=== PATIENT | male | born 1960 | race Caucasian/White ===

== ENCOUNTER → 2023-11-03 | Emergency (ER) | payer SELFPAY ==
[~2023-11-03] MED LIST: DIAZEPAM 10 MG/2 ML INJ SYRINGE ONE; DIPHENHYDRAMINE 50 MG/ML VIAL ONE; HALOPERIDOL LACT 5 MG/ML INJ ONE; NA CHLORIDE 0.9% 1,000 ML ONE
--- OUTSIDE RECORDS SUMMARY | 2023-11-03 17:14 | XMS REPORT | Continuity of Care Document ---
Author Name Unknown Address [address] [facility] [address] [place] [address] [facility] Address [address] [facility] [address] [place] [address] Care Team Providers Care Iron Cutter Name Role Phone Augustin Roberts Attending Clinician LIZZY Roach Attending Clinician Unavailable Physician, No Primary or Family Admitting Clinic musa Unavailable Payers Payer Name Policy Type Policy Number Effective Date Expirati on Date Source Allergies, Adverse Reactions, Alerts Allergy Name Allergy Type Status Severity Reaction(s) Onset Date Inactive Date Treating Clinician Comments Source No Known Allergie s DA Active U 2022-09 00:00: 00 [facility] Encounters Start Date/Time End Date/Time Encounter Type Admission Type Attending Clinicians Care Facility Care Department Encounter ID Source 2023-10-23 12:49:41 Outpatient LE LUJAN [id number] [facility] 2023-09-24 18:33:00 2023-09-24 22:52:00 Emergency EM Augustin Roberts [facility] [id number] [facility] 2023-09-11 11:43:33 2023-09-11 23:59:00 [facility]patient [facility] [id number] [facility] Results Test Description Test Time Test Comments Results Result Co mments Source BASIC METABOLIC [id number] 21:14:00* Test Item Value Reference Range Interpretation Comme nts SODIUM (test code = NA) 139 mmol/L 136-145 N POTASSIUM (test code = K) 4.2 mmol/L 3.5-5.1 N CHLORIDE (test code = CL) 107.0 mmol/L 98-107 N CARBON DIOXIDE (test code = CO2) 27.0 mmol/L 21-32 N ANION GAP (test code = GAP) 9.2 10-20 L GLUCOSE (test code = GLU) 289 mg/dL 74-106 H BLOOD UREA NITROGEN (test code = BUN) 13 mg/dL 7-18 N GLOMERULAR FILTRATION RATE (test code = GFR) > 60 mL/min >=60 The Glomerular Filtration Rate is a calculated parameterbased on serum Creatinine, patient age and sex. GFR valuesless than 60 mL/min/1.73 square meters are indicative ofChronic Kidney Disease. Values less than 15 mL/min/1.73square meters indicate Kidney failure. The calculation forGFR is based on the CKD-EPI (202) calculation. This formulais race indifferent and is the recommended formula for GFRby the National Kidney Foundation for Adults.The GFR will not calculate if the sex is unknown or if thepatient's age is <18 years. CREATININE (test code = CREAT) 0.80 mg/dL 0.7-1.3 N BUN/CREATININE RATIO (test code = BUN/CREA) 15.5 10-20 N CALCIUM (test code = CA) 7.9 mg/dL 8.5-10.1 L HEPATIC FUNCTION [id number] 21:14:00* Test Item Value Reference Range Interpretation Comme nts TOTAL PROTEIN (test code = PROT) 5.8 gram/dL 6.4-8.2 L ALBUMIN (test code = ALB) 3.0 g/dL 3.4-5.0 L GLOBULIN (test code = GLOB) 2.8 gram/dL 2.7-4.2 N ALBUMIN/GLOBULIN RATIO (test code = A/G) 1.1 0.75-1.50 N BILIRUBIN TOTAL (test code = BILT) 0.20 mg/dL 0.0-1.0 N BILIRUBIN DIRECT (test code = BILD) < 0.10 mg/dL 0.0-0.20 N SGOT/AST (test code = AST) 18 IUnit/L 15-37 N SGPT/ALT (test code = ALT) 29 IUnit/L 12-78 N ALKALINE PHOSPHATASE TOTAL (test code = ALKP) 76 IUnit/L 45-117 N Note change in reference range due to change in reagent. [id number] 21:14:00* Test Item Value Reference Range Interpretation Comme nts LIPASE (test code = LIP) 37 U/L 12-57 N URINALYSIS [id number] 21:02:00* Test Item Value Reference Range Interpretation Comme nts UA COLOR (test code = COLU) Light-Yellow YELLOW UA APPEARANCE (test code = APPU) CLEAR CLEAR IS THE SAMPLE FROM ER OR L&D?Y IF THE ANSWER IS NO,PLEASE DOCUMENT TWO RN SIGNATURES HERE- by [id number] 09/24/232101 UA GLUCOSE DIPSTICK (test code = DGLUU) >1000 (4+) mg/dL NEGATIVE UA BILIRUBIN DIPSTICK (test code = BILU) NEGATIVE mg/dL NEGATIVE UA KETONE DIPSTICK (test code = KETU) NEGATIVE mg/dL NEGATIVE UA SPECIFIC GRAVITY (test code = SGU) 1.035 1.001-1.035 UA BLOOD DIPSTICK (test code = SOFI) Negative mg/dL NEGATIVE UA PH DIPSTICK (test code = ALONSO) 5.5 5.0-8.0 UA PROTEIN DIPSTICK (test code = PROU) NEGATIVE mg/dL NEGATIVE UA UROBILINIOGEN DIPSTICK (test code = URO) Normal mg/dL NEGATIVE UA NITRITE DIPSTICK (test code = ROGERS) NEGATIVE NEGATIVE UA LEUKOCYTE ESTERASE W REFLEX (test code = LEUUR) NEGATIVE Kezia/uL NEGATIVE UA WBC (test code = WBCU) 0-5 per HPF 0-5 UA RBC (test code = RBCU) 0-3 #/HPF 0-5 UA EPITHELIAL CELLS (test code = EPIU) Few (2-5/hpf) per HPF FEW UA BACTERIA (test code = BACU) FEW #/HPF NONE UA MUCUS (test code = MUCU) FEW #/LPF FEW Urine Source? Clean CatchCBC W/O [id number] 20:51:00* Test Item Value Reference Range Interpretation Comme nts WHITE BLOOD CELL (test code = WBC) 8.8 K/mm3 4.5-12.5 N RED BLOOD CELL (test code = RBC) 4.20 mill/mm3 4.0-5.8 N HEMOGLOBIN (test code = HGB) 12.2 gram/dL 13.0-17.5 L HEMATOCRIT (test code = HCT) 37.9 % 42.0-52.0 L MEAN CELL VOLUME (test code = MCV) 90.2 fL 80-98 N MEAN CELL HGB (test code = MCH) 29.0 picogram 27.0-33.0 N MEAN CELL HGB CONCETRATION (test code = MCHC) 32.2 gram/dL 33.0-36.0 L RED CELL DISTRIBUTION WIDTH (test code = RDW) 14.6 % 11.6-16.2 N PLATELET COUNT (test code = PLT) 155 K/mm3 150-450 N MEAN PLATELET VOLUME (test c ode = MPV) 10.9 fL 6.7-11.0 N [id number] 19:52:00* Test Item Value Reference Range Interpretation Comme nts GLUBED (test code = GLUBED) 290 mg/dL 74-106 H Performed by cer tified partition assembly machine [facility]~ Notes Date/Time Note Provider Source 2023-09-24 20:08:00 [id number]:08:00 [facility] ([facility] PROVID[facility] REPORTREPORT#:[id number] REPORT STATUS: SignedDATE:09/24/23 TIME: 2007 PATIENT: ADI VILLAVICENCIO UNIT #: [id number]#: [id number] ROOM/BED:AGE: 63 SEX: M PCP PHYS: No Primary or Family PhysicianSERVICE AUTHOR: Augustin Roberts MD * ALL edits or amendments must be made on the electronic/computer document * HPI-General Illness Free Text HPI NotesFree Text HPI NotesCase of a 63-year-old male with reported past medical history of diabetes, hypertension, neuropathy, alcoholism who comes to the ER with complaint of nausea vomiting. Patient reports that he is currently in a rehab facility 40s alcoholism. Says that he forgot to bring his diabetes medication (metformin) andhas been without it for the last four days. Says that today developed nausea vomiting described as ingested food (no blood, no bile). Cannot recall inciting event, does not identify improving or worsening factors. Denies other associatedsymptoms like increased thirst, increased urinary frequency, diarrhea, fever, abdominal pain, skin color changes, passing out. GeneralConfirmed Patient YesInitial Greet Date/Time 09/24/231838 PresentationChief Complaint VomitingHx Obtained From Patient, EMS Review of Systems ROS StatementsAll systems rev neg except as marked. Free Text ROS NotesFree Text ROS NotesConstitutional Denies: Chills, Fatigue, Fever, Malaise, Weakness - generalized. Eyes Denies: Blurred bilat, Discharge bilat, Redness bilat, Swelling bilat. Ears/Nose/Throat Denies: Earache bilat, Hearing loss bilat, Mouth pain, Nasal congestion, Nose bleeding, Sinus problem, Sore throat. Respiratory Denies: Cough, non-productive, Dyspnea on exertion, Pleuritic pain, Shortness of breath. Cardiovascular Denies: Chest pain, Edema, Orthopnea, Palpitations, Syncope. GI Denies: Abdominal pain, Diarrhea. Male Denies: Dysuria, Flank pain, Penile discharge, Scrotal swelling, Testicular pain, Urinary frequency, Urinary urgency, Urination decreased, Urination increased. Musculoskeletal Denies: Back pain, Extremity pain, Extremity swelling, Joint pain, Joint swelling. Hematologic Denies: Adenopathy. Skin Denies: Diaphoresis, Erythema, Itching, Jaundice, Rash, Swelling. Neurologic Denies: Change LOC, Confusion, Dizziness, Focal weakness, Headache, Problem walking, Slurred speech, Syncope. Past Medical History - AdultStated Complaint HYPERGLYCEMIAAllergiesCoded Allergies:No Known Allergies (09/24/23) Smoking status for patients 13 years old or older: Unknown,if ever smoked Physical Exam Vital SignsVital SignsFirst Documented: Result Date Time Pulse Ox 98 09/24 1835 B/P 152/86 09/24 1835 B/P Mean 108 09/24 1835 O2 Delivery Room air 09/24 1835 Temp 36.7 09/24 1835 Pulse 104 09/24 1835 Resp 18 09/24 1835 Last Documented: Result Date Time Pulse Ox 98 09/24 2252 B/P 138/72 09/24 2252 B/P Mean 94 09/24 2252 O2 Delivery Room air 09/24 2252 Temp 36.7 09/24 2252 Pulse 103 09/24 2252 Resp 17 09/24 2252 Review of Vital Signs Reviewed Free Text PE NotesFree Text PE NotesGeneral/Const Awake, Alert, No acute distress, Well appearing, Cooperative, Not toxic appearingMS Head NormocephalicEyes PERRL, EOMIEars/Nose/Throat Airway patent, Mucous membranes moist, Pharynx NLMS Neck Supple, No meningismus, Full range of motion, No adenopathyResp/Chest Breath sounds NL, Breath sounds = bilat, No respiratory distressCardiovascular Heart rate NL, Regular rhythm, Heart sounds NL, Cap refill not delayed, Peripheral circulation NLAbdomen/GI Soft, Non-tender, BS normoactive, No distentionMS Back Inspection NLLymphatic No gross adenopathyMS Upper Extrem Inspection NL, Full range of motion, No swellingMS Lower Extrem Inspection NL, Full range of motion, No swellingSkin Color NL, No rash, Warm, DryNeurologic Oriented X3, Speech NL, No motor deficits, No sensory deficitsPsychiatric Affect NL, Mood NL Interpretation Diagnostics Lab Results InterpretationResultsLaboratory Tests 09/24/232012:[Embedded Image Not Available] 09/24/232011:[Embedded Image Not Available]Laboratory Tests: 09/24 Chemistry Sodium (136 - 145 mmol/L) 139 Potassium (3.5 - 5.1 mmol/L) 4.2 Chloride (98 - 107 mmol/L) 107.0 Carbon Dioxide (21 - 32 mmol/L) 27.0 Anion Gap (10 - 20) 9.2 L BUN (7 - 18 mg/dL) 13 Creatinine (0.7 - 1.3 mg/dL) 0.80 Glomerular Filtr Rate (>=60 mL/min) > 60 BUN/Creatinine Ratio (10 - 20) 15.5 Glucose (74 - 106 mg/dL) 289 H POC Glucose (74 - 106 mg/dL) 290 H Calcium (8.5 - 10.1 mg/dL) 7.9 L Total Bilirubin (0.0 - 1.0 mg/dL) 0.20 Direct Bilirubin (0.0 - 0.20 mg/dL) < 0.10 AST (15 - 37 IUnit/L) 18 ALT (12 - 78 IUnit/L) 29 Total Alk Phosphatase (45 - 117 IUnit/L) 76 Troponin I (0 - 54 pg/mL) 5.380 Total Protein (6.4 - 8.2 gram/dL) 5.8 L Albumin (3.4 - 5.0 g/dL) 3.0 L Globulin (2.7 - 4.2 gram/dL) 2.8 Albumin/Globulin Ratio (0.75 - 1.50) 1.1 Lipase (12 - 57 U/L) 37 Hematology WBC (4.5 - 12.5 K/mm3) 8.8 RBC (4.0 - 5.8 mill/mm3) 4.20 Hgb (13.0 - 17.5 gram/dL) 12.2 L Hct (42.0 - 52.0 %) 37.9 L MCV (80 - 98 fL) 90.2 MCH (27.0 - 33.0 picogram) 29.0 MCHC (33.0 - 36.0 gram/dL) 32.2 L RDW (11.6 - 16.2 %) 14.6 Plt Count (150 - 450 K/mm3) 155 MPV (6.7 - 11.0 fL) 10.9 Urines Urine Color (YELLOW) Light-Yellow Urine Appearance (CLEAR) CLEAR Urine pH (5.0 - 8.0) 5.5 Ur Specific [place] (1.001 - 1.035) 1.035 Urine Protein (NEGATIVE mg/dL) NEGATIVE Urine Glucose (UA) (NEGATIVE mg/dL) >1000 (4+) Urine Ketones (NEGATIVE mg/dL) NEGATIVE Urine Blood (NEGATIVE mg/dL) Negative Urine Nitrite (NEGATIVE) NEGATIVE Urine Bilirubin (NEGATIVE mg/dL) NEGATIVE Urine Urobilinogen (NEGATIVE mg/dL) Normal Ur Leukocyte Esterase (NEGATIVE Kezia/uL) NEGATIVE Urine RBC (0 - 5 #/HPF) 0-3 Urine WBC (0 - 5 per HPF) 0-5 Ur Epithelial Cells (FEW per HPF) Few (2-5/hpf) Urine Bacteria (NONE #/HPF) FEW Urine Mucus (FEW #/LPF) FEW ECG #1 InterpretationText/Dict NoteSinus tachycardia at 106 beats per minute, no axis deviation, no ST elevation, no acute ischemic changes, normal segments.Date 09/24/23Time 1941Interpreted by and reviewed by me Re-Evaluation MDM Free Text MDM NotesFree Text MDM NotesPatient with complaint of nausea vomiting. Physical exam without any concerning findings. Will request laboratory analysis and imaging to assess for possible pathologies and complications like hyperglycemia, electrolyte derangements, renal failure, DKA. Patient started on IV fluids while awaiting results. Re-Evaluation/Progress #1Text/Dict NotePatient resting comfortably. There has been no additional vomiting. Patient is sleeping. Pending laboratory analysis.Time of Re-Eval -Eval Status Improved Re-Evaluation/Progress #2Text/Dict NotePatient without complaint. Pending laboratory analysis.Time of Eval -Eval Status Improved Re-Evaluation/Progress #3Text/Dict NotePatient stable, no distress, not toxic. Labs show adequate hemoglobin, normal white blood cell count, normal renal function without major electrolyte derangements. There is hyperglycemia without signs of complications like DKA. Noneed for acute correction. Urine analysis is not consistent with a UTI. Case of uncomplicated uncontrolled diabetes. There are no signs, symptoms, or any finding that would suggest severe pathology or complications that warrants further ER or inpatient management. Patient has been explained about differential diagnosis, lab analysis, course of disease, possible complications,and treatment options in its entirety. Pt has been oriented in detail about signs and symptomst that would prompt immediate return to ER and instructed to follow up with primary care physician.Time of Eval -Eval Status Improved ED CourseMedication(s) OrderedMedication(s) Ordered:Electrolytic, Caloric, And Ann Marie Sig/Lacey Start time Last Medication Dose Route Stop Time Status Admin Sodium Chloride 1,000 ML X1ED STA 09/24 1841 DC 09/24 IV 09/24 Patient Discharge Departure Vital Signs/ConditionVital SignsFirst Documented: Result Date Time Pulse Ox 98 09/24 1835 B/P 152/86 09/24 1835 B/P Mean 108 09/24 1835 O2 Delivery Room air 09/24 1835 Temp 36.7 09/24 1835 Pulse 104 09/24 1835 Resp 18 09/24 1835 Last Documented: Result Date Time Pulse Ox 98 09/24 2252 B/P 138/72 09/24 2252 B/P Mean 94 09/24 2252 O2 Delivery Room air 09/24 2252 Temp 36.7 09/24 2252 Pulse 103 09/24 2252 Resp 17 09/24 2252 All vital signs available at the time of this entry have been reviewed. Condition Stable, Improved Clinical ImpressionClinical ImpressionPrimary Impression: VomitingSecondary Impressions: Hyperglycemia Disposition DecisionDischarge )( Discharged to Home Yes )( Time 2127 )( Date 09/24/23 Discharge/Care PlanCounseled Regarding Diagnosis, Lab results, Need for follow-up, When to return to ED(Auto) PrescriptionsCurrent Visit ScriptsONDANSETRON ODT (ZOFRAN ODT) 4 MG PO Q6H PRN PRN NAUSEA/VOMITING ONDANSETRON ODT (ZOFRAN ODT) 4 MG PO Q6H PRN PRN NAUSEA/VOMITING #15 TABS Patient Instructions ED Diabetes with High Blood SugarDeparture FormsPCP LIST Discharge NoteI have spoken with the patient and/or caregivers. I have explained the patient'scondition, diagnoses and treatment plan based on the information available to meat this time. I have answered the patient's and/or caregiver's questions and addressed any concerns. The patient and/or caregivers have as good an understanding of the patient's diagnosis, condition and treatment plan as can beexpected at this point. The vital signs have been stable. The patient's condition is stable and appropriate for discharge from the emergency department. The patient will pursue further outpatient evaluation with the primary care physician or other designated or consulting physician as outlined in the discharge instructions. The patient and/or caregivers are agreeable to this planof care and follow-up instructions have been explained in detail. The patient and/or caregivers have received these instructions in written format and have expressed an understanding of the discharge instructions. The patient and/or caregivers are aware that any significant change in condition or worsening of symptoms should prompt an immediate return to this or the closest emergency department or a call to 911. at [id number] #:[id number] OF REPORTEmesummit pacific medical [facility] department [id number]:08:[id number] ilable for patient [id number]:12:31 [facility]
[2023-11-03 18:03] LABS: Absolute Lymphocytes (CBC) 1.4 K/uL (0.7-4.9); Hematocrit 40.3 % (39.6-49.0); Lymphocytes % 14.2 % (15.3-44.8); MPV 9.1 fL (7.6-11.3); Platelets 223 thou/uL (152-406); RBC Red Blood Cell Count 4.74 M/uL (4.33-5.43)
[2023-11-03 18:08] LABS: Protime INR 1.04
[2023-11-03 18:09] LABS: Barbiturates NEGATIVE (NEGATIVE); Benzodiazepines NEGATIVE (NEGATIVE); Cocaine POSITIVE (NEGATIVE); METHAMPHETAM POSITIVE (NEGATIVE); Methadone NEGATIVE (NEGATIVE); Opiates NEGATIVE (NEGATIVE); Phencyclidine POSITIVE (NEGATIVE); THC Cannibis POSITIVE (NEGATIVE)
[2023-11-03 18:27] LABS: ALT/SGPT 49 U/L (16-61); AST/SGOT 33 U/L (15-37); Albumin 3.7 g/dL (3.4-5.0); Alkaline Phosphatase 105 U/L (45-117); BUN Blood Urea Nitrogen 19 mg/dL (7-18); Bicarbonate 25 mEq/L (21-32); Bilirubin Direct 0.2 mg/dL (0-0.2); Bilirubin Indirect, Calculated 0.4 mg/dL (0.2-0.8); Bilirubin Total 0.6 mg/dL (0.2-1.0); Glomerular Filtration Rate 68 ml/min (=/>90); Glucose Level 103 mg/dL (74-106); Potassium 3.6 mEq/L (3.5-5.1); Protein, Total 7.4 g/dL (6.4-8.2); Sodium Level 134 mEq/L (136-145)
--- NOTE | 2023-11-04 06:01 | ER ---
Nurse's Notes [facility] Name: Fred Aiken Age: 63 yrs Sex: Male : 1960 Arrival Date: 11/03/2023 Time: 17:10 Bed 20 Private MD: Diagnosis: Adverse effect of other drugs, medicaments and biological substances;Acute intoxication, methamphetamine abuse, cocaine abuse, cannabis abuse, stimulant drug intoxication with drug-induced psychosis;PCP abuse Presentation: 11/03 17:16 Chief complaint: EMS states: toned out for anxiety and SI. Detoxing from meth and me1 cocaine for 36 hours. Was at [facility] and c/o wanting to vs go through detox again so they sent him here. Denies wanting to kill himself at this time stating "I want to get better." Told Charge nurse that he would rather shoot himself than detox again but here I am.". Coronavirus screen: Vaccine status: Patient reports being unvaccinated. Ebola Screen: No symptoms or risks identified at this time. Initial Sepsis Screen: Does the patient meet any 2 criteria? HR > 90 bpm. Does the patient have a suspected source of infection? No. Patient's initial sepsis screen is negative. Risk Assessment: Do you want to hurt yourself or someone else? Patient reports desire/thoughts of hurting themselves or someone else. Provider notified. Other: has made remarks about wanting to kill himself rather than detoxing again. Onset of symptoms was November 03, 2023. 17:16 Method Of Arrival: EMS: [facility] 17:16 Acuity: SELENA 2 me1 Triage Assessment: 17:28 General: Appears uncomfortable, unkempt, well developed, well nourished, Behavior is me1 appropriate for age, anxious, restless. Pain: Denies pain. Neuro: Level of Consciousness is awake, alert, obeys commands, Oriented to person, place, time, situation, Appropriate for age. Cardiovascular: Capillary refill < 3 seconds Patient's skin is warm and dry. Respiratory: Airway is patent Trachea midline Respiratory effort is even, unlabored, Respiratory pattern is regular, symmetrical. Historical: - Allergies: 17:28 No Known Allergies; me1 - PMHx: 17:28 Diabetes mellitus; Hypertensive disorder; hyperlipidemia; neuropathy; me1 - Immunization history:: Adult Immunizations unknown. - Social history:: Smoking status: Patient reports use of chewing tobacco. Patient uses alcohol, occasionally. street drugs, cocaine, Methamphetamine (Meth). - Family history:: not pertinent. Screenin:31 [facility] ED Fall Risk Assessment (Adult) History of falling in the last 3 months, me1 including since admission No falls in past 3 months (0 pts) Confusion or Disorientation No (0 pts) Intoxicated or Sedated Yes (3 pts) Impaired Gait Yes (1 pt) Mobility Assist Device Used Yes (1 pt) Altered Elimination No (0 pt) Score/Fall Risk Level 3 or more points = High Risk Maintained a safe environment, Hourly rounding (assess needs \\T\\ fall precautionary measures) done, Used ambulatory aids as needed (educated on \\T\\ assisted with). Abuse screen: Denies threats or abuse. Nutritional screening: No deficits noted. Tuberculosis screening: No symptoms or risk factors identified. Assessment: 17:31 General: See triage assessment. . me1 18:00 Reassessment: Patient states symptoms have improved. Lying supine in semi-fowlers me1 position, eyes closed, respirations even and unlabored. No anxiety or restlessness noted. Side rails up x2, call light in reach. . 21:27 General: Patient woke up and I re-assessed for suicidal ideation. Patient states, "I me1 dont want to . Willa been smoking dope for 5 days and I was spun out. I dont want to .". 22:00 Neuro: Level of Consciousness is awake, alert, obeys commands, Oriented to person, jw7 place, time, situation. 22:00 General: Appears in no apparent distress. comfortable, Behavior is cooperative, jw7 restless, Pt denies and suicidal or homicidal ideation. Pain: Denies pain. Cardiovascular: Capillary refill < 3 seconds Patient's skin is warm and dry. Respiratory: Airway is patent Trachea midline Respiratory effort is even, unlabored, Respiratory pattern is regular, symmetrical. GI: Abdomen is round non-distended. : No deficits noted. No signs and/or symptoms were reported regarding the genitourinary system. EENT: No deficits noted. No signs and/or symptoms were reported regarding the EENT system. Derm: Skin is intact, is healthy with good turgor, Skin is dry, Skin is normal, Skin temperature is warm. Musculoskeletal: Circulation, motion, and sensation intact. Range of motion: intact in all extremities. 23:00 Reassessment: Patient appears in no apparent distress at this time. No changes from jw7 previously documented assessment. Patient and/or family updated on plan of care and expected duration. Pain level reassessed. 11/04 00:00 Reassessment: Patient appears in no apparent distress at this time. No changes from jw7 previously documented assessment. Patient and/or family updated on plan of care and expected duration. Pain level reassessed. 01:00 Reassessment: Patient appears in no apparent distress at this time. No changes from jw7 previously documented assessment. Patient and/or family updated on plan of care and expected duration. Pain level reassessed. Patient is alert, oriented x 3, equal unlabored respirations, skin warm/dry/pink. 02:00 Reassessment: Patient appears in no apparent distress at this time. No changes from jw7 previously documented assessment. Patient and/or family updated on plan of care and expected duration. Pain level reassessed. Patient is alert, oriented x 3, equal unlabored respirations, skin warm/dry/pink. 03:38 Reassessment: Patient appears in no apparent distress at this time. No changes from jw7 previously documented assessment. Patient and/or family updated on plan of care and expected duration. Pain level reassessed. Patient is alert, oriented x 3, equal unlabored respirations, skin warm/dry/pink. 04:27 Reassessment: Patient appears in no apparent distress at this time. No changes from jw7 previously documented assessment. 05:36 Reassessment: Patient appears in no apparent distress at this time. No changes from jw7 previously documented assessment. Pt resting with eyes closed, respiration are even and unlabored with RR 16, O2 97% RA. 06:51 Reassessment: Patient appears in no apparent distress at this time. No changes from jw7 previously documented assessment. Patient and/or family updated on plan of care and expected duration. Pain level reassessed. Patient is alert, oriented x 3, equal unlabored respirations, skin warm/dry/pink. Psych: 11/03 17:31 [place] Suicide Severity Screening: In the past month, have you wished you were me1 or wished you could go to sleep and not wake up? Patient responds "No." "In the past month, have you actually had any thoughts of killing yourself?" Patient responds "no." "In your lifetime, have you ever done anything, started to do anything, or prepared to do anything to end your life?" Patient responds "no." Patient verbalized that he would rather than detox off of drugs again to charge nurse and at [facility]. When asked if he wants to or has had thoughts of hurting himself during my assessment patient denies SI stating, "No, this is hard but I don't want to . I want to get better.". Subjective: Patient's mood is elevated, Delusions are denied, Hallucinations are denied Having thoughts of denied. Objective: Patient is cooperative, restless, Speech is normal, Affect is appropriate. Interventions: Removed personal items and placed in bag. Urine collected and sent for urine drug test. Interventions: discussed with Dr Clark if patient should be treated as SI at this time. Patient was medicated and is sleeping sound and per Dr Clark we would let the patient sleep it off and re-assess for SI when he wakes up as the patient wasn't in his right mind before. Safety Checks: Patient uses cocaine, Last use was 3 days ago. Patient uses methamphetamines Last use was 3 days ago. 19:57 Commitment: Patient will be a voluntary commitment. [facility] Vital Signs: 17:16 BP 157 / 86; Pulse 94; Resp 20; Temp 98.2(O); Pulse Ox 98% on R/A; Weight 92.99 kg; me1 Height 5 ft. 9 in. ; 22:01 BP 140 / 71; Pulse 94; Resp 18; Pulse Ox 97% on R/A; ms1 11/04 02:16 BP 104 / 66; Pulse 86; Resp 16 S; Pulse Ox 96% on R/A; jw7 04:00 BP 110 / 71; Pulse 88; Resp 14 S; Pulse Ox 97% on R/A; jw7 05:00 BP 112 / 69; Pulse 81; Resp 16 S; Pulse Ox 97% on R/A; jw7 06:30 BP 115 / 73; Pulse 82; Resp 16 S; Pulse Ox 97% on R/A; jw7 02/06 17:16 Body Mass Index 30.27 (92.99 kg, 175.26 cm) ms1 ED Course: 02 17:14 Patient arrived in ED. bd 17:14 Neal Clark MD is Attending Physician. kdr 17:16 Jen Cordova, RN is Primary Nurse. me1 17:28 Triage completed. me1 17:28 Arm band placed on Patient placed in an exam room. me1 17:31 Patient has correct armband on for positive identification. Bed in low position. Call [facility] light in reach. Side rails up X 1. Provided Education on: POC. Verbalized understanding. . 17:31 No provider procedures requiring assistance completed. me1 17:52 Inserted saline lock: 22 gauge in right hand, using aseptic technique. me1 17:57 Urine Drug Screen Sent. me1 17:57 Salicylate Sent. me1 17:57 Ptt, Activated Sent. me1 17:57 PT-INR Sent. me1 17:57 Hepatic Function Sent. me1 17:57 ETOH Level Sent. me1 17:57 CBC with Diff Sent. me1 17:57 Basic Metabolic Panel Sent. me1 17:57 Acetaminophen Sent. me1 20:35 Attending Physician role handed off by Neal Clark MD sp4 20:35 Jaun Ramirez MD is Attending Physician. sp4 02 01:34 Inserted saline lock: 20 gauge in right wrist, using aseptic technique. jw7 06:51 IV discontinued, intact, bleeding controlled, No redness/swelling at site. Pressure jw7 dressing applied. Administered Medications: 02 17:57 Drug: Diazepam IVP 10 mg IVP once Route: IVP; Site: right hand; me1 17:57 Follow up: Response: No adverse reaction me1 17:58 Follow up: Response: Anxiety decreased me1 22:00 Drug: Diazepam IVP 10 mg IVP once Route: IVP; Site: right hand; me1 22:00 Follow up: Response: No adverse reaction me1 22:00 Drug: NS 0.9% IV 1000 ml IV at 125 ml/hr continuous Route: IV; Rate: 125 ml/hr; Site: ms1 left hand; 11/04 02:17 Follow up: Response: No adverse reaction; IV Status: Infusion continued; IV Intake: jw7 400ml 01:33 Drug: Haloperidol IVP 5 mg IVP once Route: IVP; Site: right wrist; jw7 02:18 Follow up: Response: No adverse reaction; Marked relief of symptoms jw7 01:33 Drug: diphenhydrAMINE IVP 50 mg IVP once Route: IVP; Site: right wrist; jw7 02:18 Follow up: Response: No adverse reaction; Marked relief of symptoms jw7 Medication: 11/03 17:31 VIS not applicable for this client. ms1 Point of Care Testing: Blood Glucose: 22:02 Blood Glucose: 115 mg/dL; ms1 Ranges: Intake: 11/04 02:17 IV: 400ml; Total: 400ml. jw7 Outcome: 06:01 Discharge ordered by . verna 06:51 Discharged to Rehab Facility jw7 06:51 Condition: stable 06:51 Discharge instructions given to patient, Instructed on discharge instructions, follow up and referral plans. Demonstrated understanding of instructions, follow-up care, 06:56 Patient left the ED. 7 Signatures: Jessie Regan Kevin, MD MD kdr Iliana Anna RN RN jw7 Jaun Ramirez MD MD sp4 Jen Cordova RN RN ms1 Corrections: (The following items were deleted from the chart) 11/03 20:42 17:16 Chief complaint: EMS states: toned out for anxiety and SI. Detoxing from meth and me1 cocaine for 36 hours. Was at [facility] and c/o wanting to vs go through detox again so they sent him here. Denies wanting to kill himself at this time stating "I want to get better." Told Charge nurse that he would rather shoot himself than detox again." ms1 11/04 02:19 02 23:00 Reassessment: Patient appears in no apparent distress at this time. No jw7 changes from previously documented assessment. Patient and/or family updated on plan of care and expected duration. Pain level reassessed. Patient is alert, oriented x 3, equal unlabored respirations, skin warm/dry/pink. jw7 11/04 02:19 00:00 Reassessment: Patient appears in no apparent distress at this time. No changes jw7 from previously documented assessment. Patient and/or family updated on plan of care and expected duration. Pain level reassessed. Patient is alert, oriented x 3, equal unlabored respirations, skin warm/dry/pink. jw7
--- NOTE | 2023-11-04 06:02 | EDPHYS ---
Physician Documentation [facility] Name: Fred Aiken Age: 63 yrs Sex: Male : 1960 Arrival Date: 11/03/2023 Time: 17:10 Bed 20 Private MD: ED Physician Jaun Ramirez HPI: 11/03 20:36 This 63 yrs old Male presents to ER via EMS with complaints of Drug abuse . sp4 20:45 . sp4 20:52 63 year old male presents from [facility] with drug induced psychosis and reported sp4 suicidal ideation. . Historical: - Allergies: 17:28 No Known Allergies; me1 - PMHx: 17:28 Diabetes mellitus; Hypertensive disorder; hyperlipidemia; neuropathy; me1 - Immunization history:: Adult Immunizations unknown. - Social history:: Smoking status: Patient reports use of chewing tobacco. Patient uses alcohol, occasionally. street drugs, cocaine, Methamphetamine (Meth). - Family history:: not pertinent. ROS: 20:52 Constitutional: Negative for fever, chills, and weight loss, Positive for SI as sp4 reported , Full ROS not avaialable secondary to drug intoxication 20:52 All other systems are negative, Exam: 20:52 Constitutional: This is a well developed, well nourished patient who is awake, alert, sp4 drug intoxication, psychosis, agitation, Head/Face: Normocephalic, atraumatic. Eyes: Pupils equal round and reactive to light, extra-ocular motions intact. Lids and lashes normal. Conjunctiva and sclera are not injected. Cornea within normal limits. Periorbital areas with no swelling, redness, or edema. ENT: Nares patent. No nasal discharge, no septal abnormalities noted. Tympanic membranes are normal and external auditory canals are clear. Oropharynx with no redness, swelling, or masses, exudates, or evidence of obstruction, uvula midline. Mucous membranes moist. Neck: Trachea midline, no thyromegaly or masses palpated, and no cervical lymphadenopathy. Supple, full range of motion without nuchal rigidity, or vertebral point tenderness. Chest/axilla: Normal chest wall appearance and motion. Nontender with no deformity. No lesions are appreciated. Cardiovascular: Regular rate and rhythm with a normal S1 and S2. No gallops, murmurs, or rubs. Normal PMI, no JVD. No pulse deficits. Respiratory: Lungs have equal breath sounds bilaterally, clear to auscultation and percussion. No rales, rhonchi or wheezes noted. No increased work of breathing, no retractions or nasal flaring. Abdomen/GI: Soft, non-tender, with normal bowel sounds. No distension or tympany. No guarding or rebound. No evidence of tenderness throughout. Back: No spinal tenderness. No costovertebral tenderness. Male : Normal genitalia with no discharge or lesions. Skin: Warm, dry with normal turgor. Normal color with no rashes, no lesions, and no evidence of cellulitis. MS/ Extremity: Pulses equal, no cyanosis. Neurovascular intact. Full, normal range of motion. Neuro: Awake and alert, GCS 15, oriented to person, place, Intoxicated, grossly no lateralizing deficits. Vital Signs: 17:16 BP 157 / 86; Pulse 94; Resp 20; Temp 98.2(O); Pulse Ox 98% on R/A; Weight 92.99 kg; me1 Height 5 ft. 9 in. ; 22:01 BP 140 / 71; Pulse 94; Resp 18; Pulse Ox 97% on R/A; va1 11/04 02:16 BP 104 / 66; Pulse 86; Resp 16 S; Pulse Ox 96% on R/A; jw7 04:00 BP 110 / 71; Pulse 88; Resp 14 S; Pulse Ox 97% on R/A; jw7 05:00 BP 112 / 69; Pulse 81; Resp 16 S; Pulse Ox 97% on R/A; jw7 06:30 BP 115 / 73; Pulse 82; Resp 16 S; Pulse Ox 97% on R/A; jw7 11/03 17:16 Body Mass Index 30.27 (92.99 kg, 175.26 cm) [facility] [place]DM: 11/03 22:14 Patient medically screened. sp4 11/04 05:59 Differential Diagnosis altered mental status, sepsis, flu, Polysubstance abuse with sp4 intoxication. Data reviewed: vital signs, nurses notes, lab test result(s). Consideration of Admission/Observation Escalation of care including admission/observation considered. ED course: Patient was given 2 doses of IV Valium and also dose of Haldol and Benadryl. He managed to get some sleep and feels much improved on awakening. Patient denies suicidal ideation. Stable for discharge from ER. Patient was advised to discontinue drug abuse and enter rehabilitation.. 11/03 17:36 Order name: Acetaminophen; Complete Time: 20:35 kdr 11/03 17:36 Order name: Basic Metabolic Panel; Complete Time: 20:35 kdr 11/03 17:36 Order name: CBC with Diff; Complete Time: 20:35 kdr 11/03 17:36 Order name: ETOH Level; Complete Time: 20:35 kdr 11/03 17:36 Order name: Hepatic Function; Complete Time: 20:35 kdr 11/03 17:36 Order name: PT-INR; Complete Time: 20:35 kdr 11/03 17:36 Order name: Ptt, Activated; Complete Time: 20:35 kdr 11/03 17:36 Order name: Salicylate; Complete Time: 20:35 kdr 11/03 17:36 Order name: Urine Drug Screen; Complete Time: 20:35 kdr 11/03 21:48 Order name: Glucose, Ancillary Testing; Complete Time: 22:33 EDMS 11/03 17:36 Order name: IV Saline Lock; Complete Time: 17:52 kdr 11/03 17:36 Order name: Labs collected and sent; Complete Time: 17:52 kdr 11/03 17:36 Order name: Suicide Screening ([place]); Complete Time: 22:03 kdr Administered Medications: 11/03 17:57 Drug: Diazepam IVP 10 mg IVP once Route: IVP; Site: right hand; me1 17:57 Follow up: Response: No adverse reaction me1 17:58 Follow up: Response: Anxiety decreased me1 22:00 Drug: Diazepam IVP 10 mg IVP once Route: IVP; Site: right hand; me1 22:00 Follow up: Response: No adverse reaction me1 22:00 Drug: NS 0.9% IV 1000 ml IV at 125 ml/hr continuous Route: IV; Rate: 125 ml/hr; Site: va1 left hand; 11/04 02:17 Follow up: Response: No adverse reaction; IV Status: Infusion continued; IV Intake: jw7 400ml 01:33 Drug: Haloperidol IVP 5 mg IVP once Route: IVP; Site: right wrist; jw7 02:18 Follow up: Response: No adverse reaction; Marked relief of symptoms jw7 01:33 Drug: diphenhydrAMINE IVP 50 mg IVP once Route: IVP; Site: right wrist; jw7 02:18 Follow up: Response: No adverse reaction; Marked relief of symptoms jw7 Point of Care Testing: Blood Glucose: 11/03 22:02 Blood Glucose: 115 mg/dL; me1 Ranges: Critical Glucose Levels:Adult <50 mg/dl or >400 mg/dl <40 mg/dl or >180 mg/dl Disposition Summary: 11/04/23 06:01 Discharge Ordered Notes: We advise you enter Rehabilitation program Location: Home sp4 Problem: new sp4 Symptoms: have improved sp4 Condition: Stable sp4 Diagnosis - Adverse effect of other drugs, medicaments and biological substances sp4 - Acute intoxication, methamphetamine abuse, cocaine abuse, cannabis abuse, sp4 stimulant drug intoxication with drug-induced psychosis - PCP abuse sp4 Followup: sp4 - With: Private Physician - When: 7 - 10 days - Reason: Recheck today's complaints Discharge Instructions: - Discharge Summary Sheet sp4 - Illegal Drug Use Information, Adult sp4 Forms: - Patient Portal Instructions sp4 Signatures: Dispatcher [employer] Neal Malcolm MD MD kdr Waits, Jodi, RN RN jw7 Jaun Ramirez MD MD sp4 Jen Cordova RN RN me1
== END ==
LOC: ER 17:10
DX: F14.159 Cocaine abuse with cocaine-induced psychotic disorder, unspecified (principal); F15.10 Other stimulant abuse, uncomplicated; F12.10 Cannabis abuse, uncomplicated; F16.10 Hallucinogen abuse, uncomplicated
CPT/HCPCS: 36415; 80048; 80076; 80143; 80179; 80307; 82077; 82947; 85025; 85610; 85730; J3360; J7030